=== PATIENT | female | born 1995 | race Caucasian/White ===

== ENCOUNTER 2018-02-19 21:16 | Emergency (ER) | payer OTHER ==
--- NOTE | 2018-02-19 21:52 | ED ---
HPI Febrile Illness - HPI Summary HPI Summary: This patient is a 22 year old F presenting to [facility] accompanied by family with a chief complaint of fever that began 2 weeks ago. The patient rates the pain 6/ 10 in severity. Symptoms aggravated by nothing. Symptoms alleviated by nothing. Patient reports body aches, chills, fatigue, ear ache, nasal discharge, near syncope, suprapubic abd pain, rash on back, and cough. Patient denies nausea, vomiting, and diarrhea. - History of Current Complaint Chief Complaint: EDFluSymptoms Time Seen by Provider: 02/19/18 21:41 Hx Obtained From: Patient Onset/Duration: Started Weeks Ago, Atraumatic, Still Present Timing: Constant Initial Severity: Moderate Current Severity: Moderate Pain Intensity: 6 Pain Scale Used: 0-10 Numeric Aggravating Factors: Nothing Alleviating Factors: Nothing Associated Signs and Symptoms: Other: - Positive body aches, chills, fatigue, ear ache, nasal discharge, near syncope, suprapubic abd pain, rash on back, and cough. Negative nausea, vomiting, and diarrhea. - Allergy/Home Medications Allergies/Adverse Reactions: Allergies Allergy/AdvReac Type Severity Reaction Status Date / Time amoxicillin Allergy Rash Verified 02/19/18 21:25 PMH/Surg Hx/FS Hx/Imm Hx Previously Healthy: Yes Opthamlomology History: Denies: Hx Legally Blind EENT History: Denies: Hx Deafness Infectious Disease History: No Infectious Disease History: Denies: Traveled Outside the [place] in Last 30 Days - Social History Occupation: Student Lives: Dormitory/Roommates Alcohol Use: Occasionally Hx Substance Use: No Substance Use Type: Reports: None Hx Tobacco Use: No Smoking Status (MU): Never Smoked Tobacco Review of Systems Positive: Fever, Fatigue Positive: Ear Ache, Nasal Discharge Positive: Cough Positive: Abdominal Pain. Negative: Vomiting, Diarrhea, Nausea Positive: Rash Neurological: Other - Positive near syncope All Other Systems Reviewed And Are Negative: Yes Physical Exam - Summary Physical Exam Summary: Appearance: Well-appearing, Well-nourished, lying in bed comfortably Skin: Warm, dry. Renetta, erythematous, macular on the upper back and neck Eyes: sclera anicteric, no conjunctival pallor ENT: mucous membranes moist, pharynx appears normal Neck: Supple, nontender Respiratory: Clear to auscultation, no signs of respiratory distress Cardiovascular: Normal S1, S2. No murmurs. Normal distal pulses in tibial and radial bilaterally. Abdomen: Soft, nontender, normal active bowel sounds present. Mild splenomegaly. Musculoskeletal: Normal, Strength/ROM Intact Neurological: A&Ox3, awake and alert, mentation is normal, speech is fluent and appropriate Psychiatric: affect is normal, does not appear anxious or depressed Triage Information Reviewed: Yes Vital Signs On Initial Exam: Initial Vitals Temp Pulse Resp BP Pulse Ox 98.9 F 74 16 136/93 98 02/19/18 21:22 02/19/18 21:22 02/19/18 21:22 02/19/18 21:22 02/19/18 21:22 Vital Signs Reviewed: Yes Diagnostics - Vital Signs Vital Signs Temp Pulse Resp BP Pulse Ox 02/19/18 21:22 98.9 F 74 16 136/93 98 - Laboratory Result Diagrams: 02/19/18 22:06 02/19/18 22:06 Lab Statement: Any lab studies that have been ordered have been reviewed, and results considered in the medical decision making process. Course/Dx - Diagnoses Provider Diagnoses: Mononucleosis Discharge - Sign-Out/Discharge Documenting (check all that apply): Patient Departure - Discharge Plan Condition: Good Disposition: HOME Patient Education Materials: Mononucleosis (ED) Referrals: [facility] [Outside] Additional Instructions: Your monospot was negative, but that test is not completely reliable. Certainly your symptoms are consistent with mononucleosis. It can take several weeks to recover from mono, and unfortunately there is no specific treatment that can accelerate the healing process. - Billing Disposition and Condition Condition: GOOD Disposition: Home - Attestation Statements Document Initiated by Scribe: Yes Documenting Scribe: Becky Gregg Provider For Whom Gregorio is Documenting (Include Credential): Alberto Aguila MD Scribe Attestation: I, Becky Gregg, scribed for Alberto Aguila MD on 02/20/18 at 1417. Scribe Documentation Reviewed: Yes Provider Attestation: The documentation as recorded by the davinaibe, Becky Gregg accurately reflects the service I personally performed and the decisions made by me, Alberto Aguila MD
[2018-02-19 21:54] VITALS: BP 131/87
[2018-02-19 22:34] LABS: ABS Basophils 0 10^3/ul (0-0.2); ABS Eosinophils 0.1 10^3/ul (0-0.6); ABS Lymphocytes 2.2 10^3/ul (1.0-4.8); ABS Monocytes 0.8 10^3/ul (0-0.8); ABS Neutrophils 8.3 10^3/ul (1.5-7.7); ABS Nucleated RBC 0 10^3/ul; Eosinophil % 0.7 % (0-6); Hematocrit 38 % (35-47); Hemoglobin 13.2 g/dl (12.0-16.0); Lymphocyte % 18.9 % (25-47); Mean Corpuscular HGB Conc 35 g/dl (31-36); Mean Corpuscular Hemoglobin 31 pg (27-31); Mean Corpuscular Volume 91 fL (80-97); Mean Platelet Volume 10.1 um3 (7.4-10.4); Nucleated Red Blood Cells % 0; Platelet Count 221 10^3/ul (150-450); Red Blood Count 4.21 10^6/ul (4.00-5.40); Red Cell Distribution Width 12 % (10.5-15); White Blood Count 11.4 10^3/ul (3.5-10.8)
[2018-02-19 22:51] LABS: EGFR Non-African American 114.2 (>60)
[2018-02-19 23:30] LABS: Urine Appearance Cloudy; Urine Blood Negative (Negative); Urine Color Straw; Urine Ketones Negative (Negative); Urine Protein Negative (Negative); Urine Specific Gravity 1.002 (1.010-1.030); Urine Urobilinogen Negative (Negative)
== END 2018-02-19 23:40 | disposition home or self-care (01) ==
LOC: ED 21:16
DX: B27.90 Infectious mononucleosis, unspecified without complication (principal); Z88.0 Allergy status to penicillin
CPT/HCPCS: 36415; 80053; 81003; 84702; 85025; 86308; 99282